=== PATIENT | female | born 1995 | race Caucasian/White ===

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

== ENCOUNTER 2017-05-14 01:48 | Emergency (ER) | payer MEDICAID ==
[2017-05-14 04:01] LABS: BASOPHILS 0.3 % (0-2); EOSINOPHILS 1.5 % (0-7); HEMOGLOBIN 14.6 g/dL (12-16); IMMATURE GRANULOCYTES 0.2 % (0-5); LYMPHOCYTES 29.2 % (15-50); MCH 28.8 pg (26.0-34.0); MCHC 33.2 g/dL (31.0-37.0); MCV 86.8 fL (80.0-100.0); MEAN PLATELET VOLUME 10.8 fL (7.4-10.4); NEUTROPHILS 55.8 % (40-80); PLATELET COUNT 261 10x3/uL (130-400); RBC 5.07 10x6/uL (4.00-5.40); RDW 12.6 % (11.5-14.5); WBC 10.5 10x3/uL (4.8-10.8)
[2017-05-14 04:13] LABS: ALBUMIN 3.6 g/dL (3.4-5.0); ALKALINE PHOSPHATASE 92 U/L (46-116); ALT (SGPT) 26 U/L (10-68); BILIRUBIN - TOTAL 0.19 mg/dL (0.2-1.3); CALC OSMOLALITY 277 mosm/kg (275-300); CALCIUM 9.6 mg/dL (8.5-10.1); CARBON DIOXIDE 29.2 mmol/L (21.0-32.0); CHLORIDE - SERUM 102 mmol/L (98-107); CREATININE - SERUM 0.7 mg/dL (0.6-1.3); GLUCOSE 109 mg/dL (74-106); POTASSIUM - SERUM 4.1 mmol/L (3.5-5.1); SODIUM 138 mmol/L (136-145); UREA NITROGEN 15 mg/dL (7-18); eGFR NON AFRICAN AMERICAN > 90 mL/min (90-120)
[2017-05-14 04:19] LABS: TROPONIN-I < 0.017 ng/mL (0.000-0.060)
== END 2017-05-14 05:46 | disposition home or self-care (01) ==
LOC: D.ER 01:48
PROVIDERS: Emergency Medicine
DX: R06.00 Dyspnea, unspecified (principal); F45.8 Other somatoform disorders

== ENCOUNTER 2017-06-16 16:53 | Emergency (ER) | payer BC ==
[2017-06-16 18:13] LABS: BASOPHILS 0.2 % (0-2); EOSINOPHILS 0.1 % (0-7); HEMATOCRIT 39.3 % (36.0-48.0); HEMOGLOBIN 13.1 g/dL (12-16); IMMATURE GRANULOCYTES 0.3 % (0-5); LYMPHOCYTES 8.8 % (15-50); MCH 28.5 pg (26.0-34.0); MCHC 33.3 g/dL (31.0-37.0); MCV 85.6 fL (80.0-100.0); MEAN PLATELET VOLUME 10.6 fL (7.4-10.4); MONOCYTES 12.7 % (2-11); NEUTROPHILS 77.9 % (40-80); PLATELET COUNT 219 10x3/uL (130-400); RBC 4.59 10x6/uL (4.00-5.40); RDW 13.2 % (11.5-14.5); WBC 18.6 10x3/uL (4.8-10.8)
[2017-06-16 18:40] LABS: ALBUMIN 3.1 g/dL (3.4-5.0); ALKALINE PHOSPHATASE 75 U/L (46-116); ALT (SGPT) 23 U/L (10-68); CALC OSMOLALITY 265 mosm/kg (275-300); CARBON DIOXIDE 22.8 mmol/L (21.0-32.0); CHLORIDE - SERUM 100 mmol/L (98-107); CREATININE - SERUM 0.7 mg/dL (0.6-1.3); GLUCOSE 105 mg/dL (74-106); POTASSIUM - SERUM 3.4 mmol/L (3.5-5.1); PROTEIN - SERUM 7.2 g/dL (6.4-8.2); SODIUM 134 mmol/L (136-145); UREA NITROGEN 6 mg/dL (7-18); eGFR NON AFRICAN AMERICAN > 90 mL/min (90-120)
[2017-06-16 18:44] LABS: HCG - QUANTITATIVE (MATERNAL) 0 mIU/mL
== END 2017-06-16 20:55 | disposition home or self-care (01) ==
LOC: D.ER 16:53
PROVIDERS: Emergency Medicine
DX: B34.9 Viral infection, unspecified (principal); J02.9 Acute pharyngitis, unspecified; R53.81 Other malaise

== ENCOUNTER → 2020-10-03 15:24 | Outpatient (CLI) | payer MEDICAID | END | disposition home or self-care (01) | LOC: D.RAD 15:24 | PROVIDERS: ATTEND Emergency Medicine | DX: M54.5 Low back pain (principal) ==